=== PATIENT | female | born 1980 | race Caucasian/White ===

== ENCOUNTER 2021-04-03 02:16 | Emergency (ER) | payer MEDICAID, MEDICARE, SELFPAY | END 2021-04-03 04:38 | disposition home or self-care (01) | LOC: ERS 02:16 | DX: G43.909 Migraine, unspecified, not intractable, without status migrainosus (principal); J45.909 Unspecified asthma, uncomplicated; F17.210 Nicotine dependence, cigarettes, uncomplicated; Z79.899 Other long term (current) drug therapy | CPT/HCPCS: 96372; 99283; J1200; J1885; J2765 ==